=== PATIENT | male | born 1995 | race Caucasian/White ===

== ENCOUNTER 2020-09-23 13:05 | Emergency (ER) | payer SELFPAY ==
[~2020-09-23] VITALS: Ht 193 cm; Wt 106.8 kg
[2020-09-23 13:33] VITALS: BP 127/85; Ht 193 cm; Wt 106.8 kg
[2020-09-23 13:49] LABS: BASOPHILS 0.8 % (0-2); EOSINOPHILS 2.8 % (0-7); HEMATOCRIT 45.5 % (42.0-54.0); HEMOGLOBIN 15.6 g/dL (13.5-17.5); LYMPHOCYTES 28.7 % (15-50); MCH 30.3 pg (26.0-34.0); MCHC 34.2 g/dL (31.0-37.0); MCV 88.7 fL (80.0-100.0); MEAN PLATELET VOLUME 8.6 fL (7.4-10.4); MONOCYTES 7.2 % (2-11); NEUTROPHILS 60.5 % (40-80); PLATELET COUNT 253 10x3/uL (130-400); RBC 5.13 10x6/uL (4.20-6.10); RDW 12.8 % (11.5-14.5); WBC 8.3 10x3/uL (4.8-10.8)
[2020-09-23 13:59] LABS: CALC OSMOLALITY 283 mosm/kg (275-300); CALCIUM 9.4 mg/dL (8.5-10.1); CARBON DIOXIDE 28.1 mmol/L (21.0-32.0); CHLORIDE - SERUM 105 mmol/L (98-107); CREATININE - SERUM 0.9 mg/dL (0.6-1.3); GLUCOSE 116 mg/dL (74-106); POTASSIUM - SERUM 4.3 mmol/L (3.5-5.1); SODIUM 143 mmol/L (136-145); UREA NITROGEN 7 mg/dL (7-18); eGFR NON AFRICAN AMERICAN > 90 mL/min (90-120)
[2020-09-23 14:08] LABS: ALBUMIN 4.2 g/dL (3.4-5.0); ALKALINE PHOSPHATASE 59 U/L (30-120); ALT (SGPT) 33 U/L (10-68); AMYLASE - SERUM 47 U/L (25-115); BILIRUBIN - TOTAL 0.41 mg/dL (0.2-1.3); LIPASE 86 U/L (73-393); PROTEIN - SERUM 7.7 g/dL (6.4-8.2); TROPONIN-I < 0.017 ng/mL (0.000-0.060)
[2020-09-23 14:12] LABS: BILIRUBIN NEGATIVE (NEGATIVE); KETONE NEGATIVE mg/dL (< 1+); NITRITE NEGATIVE (NEGATIVE); PH 5.5 (5.0-8.0); UROBILINOGEN 2 mg/dL (< 2)
[2020-09-23 15:05] LABS: BACTERIA FEW HPF (NONE SEEN); SQUAMOUS EPITHELIAL 0-5 HPF (0-4); WHITE CELLS - URINE 5 HPF (0-1)
[2020-09-23] MEDS ORDERED: ACETAMINOPHEN500 M1 PO (16:07)
[2020-09-23] MEDS ORDERED: IBUPROFEN800 MG PO (16:07)
[2020-09-23] MEDS ORDERED: LEVSIN/ANASP0.125 MG PO (16:07)
== END 2020-09-23 16:25 | disposition home or self-care (01) ==
LOC: D.ER 13:05
PROVIDERS: Family Medicine
DX: R10.11 Right upper quadrant pain (principal); E11.9 Type 2 diabetes mellitus without complications